=== PATIENT | female | born 1950 | race Caucasian/White ===

== ENCOUNTER 2016-07-28 09:05 | Emergency (ER) | payer MEDICARE, OTHER ==
[~2016-07-28] VITALS: Ht 157.5 cm; Wt 71.7 kg
[~2016-07-28 09:05] MED LIST: GABA300C PO; HYDR-3326 PO; LAMO100T2 PO; LEVO100T PO; MELA3TAB PO; PARO20TA51 PO; SENN1TAB6 PO; TEMA30CA PO
--- NOTE | 2016-07-28 09:46 | NUR ---
Patient is transported via wheelchair for CT head. Patient appears stable at this moment.
--- NOTE | 2016-07-28 10:28 | NUR ---
DPatient discharged to home in stable condition. Written and verbal after care instructions given. Patient verbalizes understanding of instruction. Pt ambulatory with a steady gait.
[2016-07-28 10:30] VITALS: BP 148/65
== END 2016-07-28 10:30 | disposition home or self-care (01) ==
LOC: ER 09:07
DX: S02.2XXA Fracture of nasal bones, initial encounter for closed fracture (principal); S01.111A Laceration without foreign body of right eyelid and periocular area, initial encounter; S00.31XA Abrasion of nose, initial encounter; I10 Essential (primary) hypertension; W18.30XA Fall on same level, unspecified, initial encounter; Y93.89 Activity, other specified; Y92.89 Other specified places as the place of occurrence of the external cause; Y99.8 Other external cause status; Z96.612 Presence of left artificial shoulder joint
CPT/HCPCS: 70450-TC; 70486-TC; A4606; A6402; Z7610